=== PATIENT | female | born 1950 | race Caucasian/White ===

== ENCOUNTER → 2019-08-12 | Outpatient (CLI) | payer MEDICARE ==
[~2019-08-12] MED LIST: ACET-1600 PO; DULO30CA2 PO; IBUP-1223 PO; MULT-516 PO; OMEG-133 PO; OMEP-110 PO; PRAV10TA2 PO; PREG75CA PO; VERA80TA25 PO
[2019-08-12 09:01] LABS: BASOPHILS # (AUTO) 0.04 x10^3/uL (0-0.1); BASOPHILS % (AUTO) 1 % (0-1); EOSINOPHILS # (AUTO) 0.08 x10^3/uL (0-0.4); EOSINOPHILS % (AUTO) 1 % (1-7); LYMPHOCYTES # (AUTO) 2.11 x10^3/uL (1-3.4); LYMPHOCYTES % (AUTO) 27 % (22-44); MD NO; MEAN CORPUSCULAR HGB CONC 33.7 g/dL (32.4-35.8); MEAN CORPUSCULAR VOLUME 94.9 fL (80-100); MEAN PLATELET VOLUME 9.6 fL (7.4-10.4); MONOCYTES % (AUTO) 6 % (2-9); NEUTROPHILS # (AUTO) 5.17 x10^3/uL (1.8-6.8); NEUTROPHILS % (AUTO) 65 % (42-75); PLATELET COUNT 290 x10^3/uL (130-400); RED BLOOD COUNT 4.44 x10^6/uL (3.82-5.3); RED CELL DISTRIBUTION WIDTH 13.9 % (9.6-15.2)
[2019-08-12 09:11] LABS: ANION GAP 6 mmol/L (5-15); CALCIUM 8.8 mg/dL (8.5-10.1); CHLORIDE 109 mmol/L (98-107); CREATININE 0.76 mg/dL (0.55-1.02); INTERNATIONAL NORMALIZED RATIO 0.93 (0.93-1.1); PROTHROMBIN TIME 9.8 Seconds (9.6-11.5)
== END | disposition home or self-care (01) ==
LOC: STAR 07:33
PROVIDERS: ATTEND Neurological Surgery
DX: Z01.818 Encounter for other preprocedural examination (principal); M48.062 Spinal stenosis, lumbar region with neurogenic claudication
CPT/HCPCS: 36415; 71046; 80048; 85025; 85610; 85730; 93005

== ENCOUNTER 2019-08-16 07:56 | Inpatient (IN) | payer MEDICARE ==
[~2019-08-16] VITALS: Ht 170.2 cm; Wt 87.1 kg
[~2019-08-16 07:56] MED LIST changes: +BACITRACIN 50,000 UNIT ONE; +BUPIVACAINE/PF 0.5% ONE; +EPINEPHRINE 1 MG/ML, 1ML ONE
[2019-08-16] MEDS ORDERED: FENTANYL PF 250 MCG/5ML ONE ×2 (08:06→11:21)
[2019-08-16] MEDS ORDERED: GLYCOPYRROLATE 0.2MG/1ML, 5ML ONE (08:07)
[2019-08-16] MEDS ORDERED: CEFAZOLIN 1,000 MG ONE (08:07)
[2019-08-16] MEDS ORDERED: PROPOFOL 10 MG/ML, 20ML ONE (08:07)
[2019-08-16] MEDS ORDERED: ROCURONIUM 10MG/ML,5ML ONE (08:07)
[2019-08-16] MEDS ORDERED: DEXAMETHASONE 4 MG/ML, 1ML ONE (08:07)
[2019-08-16] MEDS ORDERED: ONDANSETRON 2MG/ML, 2ML ONE (08:07)
[2019-08-16] MEDS ORDERED: NEOSTIGMINE 1 MG/ML, 10ML ONE (08:07)
[2019-08-16] MEDS ORDERED: ACETAMINOPHEN 500 MG TABLET PO ONE (08:30)
[2019-08-16] MEDS ORDERED: CHLORHEXIDINE 15 ML UDC MM ONE (08:30)
[2019-08-16] MEDS ORDERED: LACTATED RINGERS 1,000 ML IV SCH (08:31)
[2019-08-16 08:33] VITALS: BP 148/84
[2019-08-16] MEDS ORDERED: CHLORHEXIDINE 15 ML UDC ONE (08:50)
[2019-08-16] MEDS ORDERED: ACETAMINOPHEN 500 MG TABLET ONE (08:50)
[2019-08-16] MEDS ORDERED: PROMETHAZINE 25 MG/ML, 1ML IVPush PRN (10:30)
[2019-08-16] MEDS ORDERED: HYDROmorphone 1 MG/ML, 1ML INJ IVPush PRN (10:30)
[2019-08-16] MEDS ORDERED: HALOPERIDOL 5 MG/ML IV PRN (10:30)
[2019-08-16] MEDS ORDERED: MEPERIDINE/PF 25MG/0.5ML IVPush PRN (10:30)
[2019-08-16] MEDS ORDERED: OXYcodone 5 MG/5 ML ORAL.SOL UDC PO PRN (10:30)
[2019-08-16] MEDS ORDERED: DIAZEPAM 5 MG/ML, 2ML IVPush PRN ×2 (10:30→15:30)
[2019-08-16] MEDS ORDERED: LABETALOL 5MG/ML, 20ML IV PRN ×2 (10:30→18:00)
[2019-08-16] MEDS ORDERED: METHOCARBAMOL 1,000 MG in DEXTROSE 5% 100 ML IV PRN (10:30)
[2019-08-16] MEDS ORDERED: hydrALAzine 20 MG/ML, 1ML IV PRN (10:30)
[2019-08-16] MEDS ORDERED: morphine SULFATE 10 MG/ML, 1ML IVPush PRN (10:30)
[2019-08-16] MEDS ORDERED: LABETALOL 5MG/ML, 20ML ONE (12:22)
[2019-08-16] MEDS ORDERED: FENTANYL PF 100 MCG/2ML ONE (12:45)
[2019-08-16] MEDS ORDERED: OXYcodone 5 MG/5 ML ORAL.SOL UDC ONE (12:45)
[2019-08-16] MEDS: FENTANYL PF 100 MCG/2ML IV PRN ×2 (12:48→12:56)
[2019-08-16] MEDS: DIAZEPAM 5 MG TABLET PO PRN (14:15)
[2019-08-16] MEDS ORDERED: DIAZEPAM 5 MG TABLET ONE (15:11)
[2019-08-16] MEDS ORDERED: OXYcodone IR 5MG TABLET ONE (16:49)
[2019-08-16] MEDS: OXYcodone IR 5MG TABLET PO PRN ×2 (16:55→20:59)
[2019-08-16 17:05] VITALS: BP 118/57
[2019-08-16] MEDS ORDERED: MAGNESIUM HYDROXIDE 8%, 30ML UDC PO PRN (18:00)
[2019-08-16] MEDS ORDERED: HYDROmorphone 2 MG/ML, 1ML IM PRN (18:00)
[2019-08-16] MEDS ORDERED: ONDANSETRON 2MG/ML, 2ML IV PRN (18:00)
[2019-08-16] MEDS ORDERED: HYDROcodone/APAP 5/325 TABLET PO PRN (18:00)
[2019-08-16] MEDS ORDERED: BISACODYL 10 MG SUPP PR PRN (18:00)
[2019-08-16] MEDS ORDERED: PROMETHAZINE 25 MG/ML, 1ML IM PRN (18:00)
[2019-08-16] MEDS: NS + 20MEQ KCL 1,000 ML IV SCH (18:23)
[2019-08-16 19:43] VITALS: BP 109/74
[2019-08-16] MEDS: CEFAZOLIN PMX 1GM/50ML 50 ML IVPB SCH (20:59)
[2019-08-16 23:50] VITALS: BP 138/77
[2019-08-17] MEDS: OXYcodone IR 5MG TABLET PO PRN ×4 (01:07→15:07)
[2019-08-17 04:29] VITALS: BP 96/59
[2019-08-17] MEDS: CEFAZOLIN PMX 1GM/50ML 50 ML IVPB SCH (05:42)
[2019-08-17] MEDS: NS + 20MEQ KCL 1,000 ML IV SCH (07:20)
[2019-08-17] MEDS: DIAZEPAM 5 MG TABLET PO PRN ×2 (07:30→12:26)
[2019-08-17 08:00] VITALS: BP 138/69
[2019-08-17] MEDS ORDERED: SENNA/DOCUSATE TABLET PO SCH (09:00)
[2019-08-17 13:11] VITALS: BP 132/73
[2019-08-17] MEDS ORDERED: CYCL-259 PO (14:32)
[2019-08-17] MEDS ORDERED: OXYC-302 PO (14:32)
[2019-08-17] MEDS ORDERED: DOCU-131 PO (15:24)
== END 2019-08-17 15:35 | disposition home or self-care (01) | DRG 517 ==
LOC: OUT 07:56 → 4NE 17:05 → OUT 17:17 → 4NE 17:17 → DCLOUNGE 08-17 15:29
PROVIDERS: ADMIT Neurological Surgery; ATTEND Neurological Surgery
PROC: 01NB0ZZ Release Lumbar Nerve, Open Approach (ICD-10-PCS; principal; 2019-08-16 10:00)
DX: M54.16 Radiculopathy, lumbar region (principal); M48.061 Spinal stenosis, lumbar region without neurogenic claudication; Z20.828 Contact with and (suspected) exposure to other viral communicable diseases; Z88.8 Allergy status to other drugs, medicaments and biological substances; Z87.891 Personal history of nicotine dependence
CPT/HCPCS: 36415; 72100; 87635; G0378; J0171; J0690; J1100; J2405; J2704; J2710; J3010; J3480; J7120